=== PATIENT | male | born 1960 | race Caucasian/White ===

== ENCOUNTER 2018-02-10 03:53 | Inpatient (IN) | payer SELFPAY ==
[2018-02-10] VITALS (12 sets, daily range): BP systolic 95–148; BP diastolic 48–91; PULSE 52–97; TEMP 98.1–98.2
[~2018-02-10] VITALS: Ht 170.2 cm; Wt 73.8 kg
[~2018-02-10 03:53] MED LIST: BACTRIM DS 8001 TAB PO; CEPHALEXIN500 M1 PO; COLACE 100100 MG/CAP PO; DILAUDID 2MG TAB2 MG PO; FLEXERIL 1010 MG/TAB PO; HYDROCODONE/APAP; IBUPROFEN800 MG PO; MIRALAX PA17 GM/Dose PO; NO HOME MEDICATIONS; NORCO 325 MG-51 TAB PO; NORCO 325 MG-7.1 TAB PO; PERCOCET 325 MG1 TA2 PO; ULTRAM 50MG TAB50 MG PO
[2018-02-10 04:19] LABS: BASO # 0.1 (0.0-0.2); BASO % 0.7 % (0.0-2.0); EOS # 0.7 (0.0-0.7); EOS % 3.5 % (0-4.0); GRAN # 15.7 (1.4-6.5); GRAN % 76.9 % (42.2-75.2); HEMOGLOBIN 14.8 g/dl (13.5-18.0); LYMPH # 2.7 (1.2-3.4); LYMPH % 13.3 % (20.0-51.0); MEAN CELL VOLUME 95 fl (80.0-100.0); MEAN CORPUSCULAR HEMOGLOBIN 32 pg (27.0-31.0); MEAN CORPUSCULAR HGB CONC 34 g/dl (33.0-37.0); MEAN PLATELET VOLUME 9.5 fl (7.4-10.4); MONO # 1.1 (0.1-0.6); MONO % 5.2 % (1.7-9.3); PLATELET COUNT 322 K/mm3 (130-400); RED BLOOD COUNT 4.64 M/mm3 (4.20-5.60); REDCELL DISTRIBUTION WIDTH-CV 12.5 % (11.5-14.5)
[2018-02-10 04:40] LABS: C-REACTIVE PROTEIN 0.8 mg/dL (0.0-0.9); LIPASE 102 U/L (23-300)
[2018-02-10 05:06] LABS: TROPONIN-I < 0.012 ng/mL (0.000-0.034)
[2018-02-10 05:28] LABS: ALBUMIN 3.4 gm/dL (3.5-5.0); BILIRUBIN,TOTAL 0.5 mg/dL (0.0-1.0); CALCIUM 8.9 mg/dL (8.4-10.2); CREATININE, serum 0.95 mg/dL (0.66-1.25); POTASSIUM 3.4 mmol/L (3.4-5.0); TOTAL PROTEIN 6.5 gm/dL (6.4-8.2)
[2018-02-10 06:14] LABS: COLLECTION METHOD CLEAN CATCH
[2018-02-10 06:22] LABS: MUCOUS Present /lpf; PH 6 (5-8); SQUAMOUS EPITHELIAL None Seen /hpf; URINE APPEARANCE Clear; URINE BACTERIA None Seen /hpf; URINE BILIRUBIN Negative (NEGATIVE); URINE BLOOD Negative (NEGATIVE); URINE COLOR Yellow; URINE GLUCOSE Negative (NEGATIVE); URINE KETONE Negative (NEGATIVE); URINE LEUKOCYTE ESTERASE Negative (NEGATIVE); URINE NITRATE Negative (NEGATIVE); URINE PROTEIN(semi-quant) Negative (NEGATIVE); URINE RBC 0-2 /hpf; URINE UROBILINOGEN Negative (NEGATIVE)
[2018-02-10] MEDS ORDERED: PRILOTC (09:37)
[2018-02-11 04:20] VITALS: BP 104/57; PULSE 64; TEMP 98.3
[2018-02-11 07:41] VITALS: BP 114/73; PULSE 61; TEMP 97.8
[2018-02-11] MEDS ORDERED: NORCO 325 MG-51 TAB PO (12:15)
[2018-02-11 13:35] VITALS: BP 134/64; PULSE 69; TEMP 98.7
== END 2018-02-11 14:10 | disposition home or self-care (01) | DRG 419 ==
LOC: COL.ER 03:53 → SURG 05:55
PROVIDERS: Emergency Medicine; Surgery
PROC: 0FT44ZZ Resection of Gallbladder, Percutaneous Endoscopic Approach (ICD-10-PCS; principal; 2018-02-10 17:30)
DX: K80.00 Calculus of gallbladder with acute cholecystitis without obstruction (principal); F17.210 Nicotine dependence, cigarettes, uncomplicated
CPT/HCPCS: J1100; J1170; J1885; J1956; J2270; J2405; J2704; J2710; J3010; J7030; Q9967

== ENCOUNTER 2019-03-21 14:46 | Emergency (ER) | payer OTHER ==
[~2019-03-21] VITALS: Ht 170.2 cm; Wt 68.2 kg
[~2019-03-21 14:46] MED LIST changes: +PRILOTC
[2019-03-21 14:59] VITALS: BP 119/67; PULSE 74; TEMP 98
[2019-03-21] MEDS ORDERED: NORCO 325 MG-51 TAB PO (16:59)
[2019-03-21] MEDS ORDERED: FLEXERIL 1010 MG/TAB PO (16:59)
== END 2019-03-21 17:16 | disposition home or self-care (01) ==
LOC: COL.ER 14:46
DX: S22.32XA Fracture of one rib, left side, initial encounter for closed fracture (principal); F17.210 Nicotine dependence, cigarettes, uncomplicated; Z90.49 Acquired absence of other specified parts of digestive tract; W01.198A Fall on same level from slipping, tripping and stumbling with subsequent striking against other object, initial encounter; Y92.009 Unspecified place in unspecified non-institutional (private) residence as the place of occurrence of the external cause
CPT/HCPCS: J1885

== ENCOUNTER → 2019-11-13 | Outpatient (CLI) | payer OTHER ==
[2019-11-13 09:11] LABS: BASO # 0.1 (0.0-0.2); BASO % 0.8 % (0.0-2.0); EOS # 0.7 (0.0-0.7); GRAN # 10.3 (1.4-6.5); HEMATOCRIT 44.3 % (42.0-52.0); HEMOGLOBIN 14.8 g/dl (13.5-18.0); LYMPH # 2.3 (1.2-3.4); LYMPH % 16.1 % (20.0-51.0); MEAN CELL VOLUME 96 fl (80.0-100.0); MEAN CORPUSCULAR HEMOGLOBIN 32 pg (27.0-31.0); MEAN CORPUSCULAR HGB CONC 33 g/dl (33.0-37.0); MEAN PLATELET VOLUME 9.5 fl (7.4-10.4); MONO % 6.8 % (1.7-9.3); PLATELET COUNT 299 K/mm3 (130-400); RED BLOOD COUNT 4.64 M/mm3 (4.20-5.60); REDCELL DISTRIBUTION WIDTH-CV 12.7 % (11.5-14.5)
== END ==
LOC: COL.PUL 08:00 → COL.LAB 08:03
PROVIDERS: Registered Nurse
DX: Z12.5 Encounter for screening for malignant neoplasm of prostate (principal); D72.829 Elevated white blood cell count, unspecified; F17.210 Nicotine dependence, cigarettes, uncomplicated

== ENCOUNTER → 2019-11-15 | Outpatient (CLI) | payer OTHER | LOC: COL.PUL 12:49 | DX: F17.210 Nicotine dependence, cigarettes, uncomplicated (principal); R53.83 Other fatigue ==

== ENCOUNTER 2020-11-02 21:45 | Emergency (ER) | payer OTHER ==
[~2020-11-02] VITALS: Ht 182.9 cm; Wt 70.9 kg
[2020-11-02 21:54] VITALS: TEMP 98.9
[2020-11-02 22:40] VITALS: BP 124/62; PULSE 73
== END 2020-11-02 22:40 | disposition home or self-care (01) ==
LOC: COL.ER 21:45
DX: S93.401A Sprain of unspecified ligament of right ankle, initial encounter (principal); X50.1XXA Overexertion from prolonged static or awkward postures, initial encounter